=== PATIENT | male | born 1990 | race Two or more races ===

== ENCOUNTER 2016-11-19 12:43 | Emergency (ER) | payer SELFPAY ==
[2016-11-19 12:49] VITALS: BP 146/87
[2016-11-19] MEDS ORDERED: LIDOCAINE 1%/EPI 1:100,000 20 ML VIAL. INJ ONE (13:30)
[2016-11-19] MEDS ORDERED: HYDR-971 PO (13:30)
[2016-11-19] MEDS ORDERED: DIPHTH,PERTUSS(ACELL),TET TOX 0.5 ML DISP.SYRIN. VAX IM ONE (13:30)
--- NOTE | 2016-11-19 13:30 | PHYS DOC ---
Past Medical History Past Medical History: No Pertinent History Past Surgical History: Other Additional Past Surgical Histo: R ankle surgery Alcohol Use: Occasionally Drug Use: Marijuana Adult General Chief Complaint Chief Complaint: LACERATION/AVULSION HPI HPI Patient is a 26 year old male presents emergency Department today with a complaint of a laceration to the inside of his right thigh that occurred approximately 2 hours ago. Patient states that he was building. He states that he lost site of where his leg was underneath piece of wood that he was cutting. This is when the saw blade went through his leg. Patient cannot remember the last time he had a tetanus shot. He denies any additional injuries or concerns at this time. Review of Systems Review of Systems Constitutional: Denies fever or chills [] Eyes: Denies change in visual acuity, redness, or eye pain [] HENT: Denies nasal congestion or sore throat [] Respiratory: Denies cough or shortness of breath [] Cardiovascular: No additional information not addressed in HPI [] GI: Denies abdominal pain, nausea, vomiting, bloody stools or diarrhea [] : Denies dysuria or hematuria [] Musculoskeletal: Denies back pain or joint pain [] Integument: Denies rash or skin lesions [] Neurologic: Denies headache, focal weakness or sensory changes [] Endocrine: Denies polyuria or polydipsia [] Current Medications Current Medications Current Medications Medications (Trade) Dose Ordered Sig/Althea Start Time Stop Time Status Last Admin Dose Admin Diphtheria/ Tetanus/Acell Pertussis (Boostrix) 0.5 ml ONCE ONCE 11/19/16 13:30 11/19/16 13:35 DC 11/19/16 13:35 0.5 ML Lidocaine/ Epinephrine (Xylocaine 1%-Epi 1:100,000) 20 ml 1X ONCE 11/19/16 13:30 11/19/16 13:35 DC 11/19/16 13:32 20 ML Allergies Allergies Allergies Coded Allergies Type Severity Reaction Last Updated Verified No Known Drug Allergies 11/19/16 No Physical Exam Physical Exam Constitutional: Well developed, well nourished, no acute distress, non-toxic appearance. [] HENT: Normocephalic, atraumatic, bilateral external ears normal, oropharynx moist, no oral exudates, nose normal. [] Eyes: PERRLA, EOMI, conjunctiva normal, no discharge. [] Neck: Normal range of motion, no tenderness, supple, no stridor. [] Cardiovascular:Heart rate regular rhythm, no murmur [] Lungs & Thorax: Bilateral breath sounds clear to auscultation [] Abdomen: Bowel sounds normal, soft, no tenderness, no masses, no pulsatile masses. [] Skin: Warm, dry, no erythema, no rash. [] Back: No tenderness, no CVA tenderness. [] Extremities: Approximate 4 cm laceration to the medial aspect of the lower portion of the right thigh that extends into the subcutaneous fat. There is no muscle fascia or muscle injury. There is no active bleeding. Right knee is unaffected. Flexor and extensor mechanism is intact. Patient's leg is neurovascularly intact distally. Neurologic: Alert and oriented X 3, normal motor function, normal sensory function, no focal deficits noted. [] Psychologic: Affect normal, judgement normal, mood normal. [] Current Patient Data Vital Signs Vital Signs Date Time Temp Pulse Resp B/P Pulse Ox O2 Delivery O2 Flow Rate FiO2 11/19/16 12:49 98.1 64 16 100 Room Air 98.1 EKG EKG [] Radiology/Procedures Radiology/Procedures Procedure note: 0.5 cm laceration to the medial aspect of right thigh was anesthetized with 1% lidocaine with epinephrine. Wound was cleansed with Betadine solution and rinsed with copious amounts of saline. Wound was explored for foreign bodies. No foreign bodies were found. Subcutaneous layer was closed with a running stitch of 4-0 Vicryl. The wound margins were approximated utilizing 4-0 Prolene in a simple interrupted fashion of a singular closure for total of 9 stitches. Patient tolerated the procedure well. Course & Med Decision Making Course & Med Decision Making Pertinent Labs and Imaging studies reviewed. (See chart for details) [] Dragon Disclaimer Dragon Disclaimer This electronic medical record was generated, in whole or in part, using a voice recognition dictation system. Departure Departure Impression: Primary Impression: Laceration Disposition: 01 HOME, SELF-CARE Condition: IMPROVED Referrals: NO PCP (PCP) Patient Instructions: Diphtheria Toxoid; Tetanus Toxoid Adsorbed, DT, Td, Laceration Care, Adult, [id number] Additional Instructions: 1. Stitches need to be removed in 10 days. 2. Review the discharge instructions provided for self-care and reasons to return to the emergency department. 3. Take the medication as prescribed. 4. Follow-up with a primary care doctor's office for wound check and suture removal. If you do not have a primary care doctor, then please use the pamphlet provided for assistance in finding one to address your wound care. Scripts Hydrocodone/Apap 5-325 ([place] 5-325 Tablet)1 Each Tablet1 Tab PO PRN Q6HRS PRN PAIN #10 TAB Prov:LIZZY BANSAL 11/19/16 LIZZY BANSAL Nov 19, 2016 13:30
== END 2016-11-19 14:10 | disposition home or self-care (01) ==
LOC: ER 12:43
DX: S71.111A Laceration without foreign body, right thigh, initial encounter (principal); F12.10 Cannabis abuse, uncomplicated; W45.8XXA Other foreign body or object entering through skin, initial encounter; Y93.89 Activity, other specified; Y92.89 Other specified places as the place of occurrence of the external cause; Y99.8 Other external cause status
CPT/HCPCS: 12001; 90471; 90715; 99283; J3490